=== PATIENT | female | born 1995 | race Caucasian/White ===

== ENCOUNTER 2021-02-04 10:26 | Emergency (ER) | payer OTHER, MEDICAID ==
[~2021-02-04] VITALS: Ht 167.6 cm; Wt 117.5 kg
[2021-02-04] MEDS ORDERED: BUTALB-APAP-CA1 EACH PO (10:40)
[2021-02-04] MEDS ORDERED: PROZAC10 M1 PO (10:40)
[2021-02-04] MEDS ORDERED: HYDROXYZINE HCL25 M2 PO (10:40)
[2021-02-04 11:02] LABS: ABSOLUTE BASOPHILS 0.1 thou/uL (0.0-0.2); ABSOLUTE EOSINOPHILS 0.1 thou/uL (0.0-0.7); ABSOLUTE LYMPHOCYTES 2.9 thou/uL (0.8-5.3); ABSOLUTE MONOCYTES 0.3 thou/uL (0.0-1.2); ABSOLUTE NEUTROPHILS 4.8 thou/uL (1.6-8.1); BASOPHILS 0.8 %; EOSINOPHILS 1.6 %; HEMOGLOBIN 14.1 gm/dL (12.0-15.0); LYMPHOCYTES 35.7 %; MCH 27.6 pg (26.0-34.0); MCHC 34.5 g/dL (28.0-37.0); MCV 79.9 fL (80.0-100.0); MONOCYTES 3.3 %; MPV 8.4 fl. (7.2-11.1); NUCLEATED RBCS 0 /100WBC; PLATELET COUNT* 234 thou/uL (150-400); POLYS 58.6 %; RBC 5.13 mil/uL (4.20-5.00); WBC 8.2 thou/uL (4.0-11.0)
[2021-02-04 11:09] LABS: CALCIUM 8.4 mg/dL (8.5-10.1); CREATININE 0.7 mg/dL (0.6-1.3); POTASSIUM 3.9 mmol/L (3.5-5.1)
[2021-02-04 11:23] LABS: ALBUMIN 3.6 g/dL (3.4-5.0); CK-MB MASS 0.9 ng/mL (<0.5-3.6); MAGNESIUM 1.7 mg/dL (1.8-2.4); TOTAL BILIRUBIN 0.2 mg/dL (<0.1-1.0); TOTAL PROTEIN 7.4 g/dL (6.4-8.2)
[2021-02-04 11:50] VITALS: BP 121/76
--- NOTE | 2021-02-05 12:47 | EKG ---
[place] [address] ELECTROCARDIOGRAM REPORT Name: PETER PUGH Room: [facility]#: [id number] Admission: 02/04/21 Attend Phys: Discharge: 02/04/21 Date of : [birth year] Date of Service: 02/04/21 1043 Report #: [id number] THIS REPORT FOR: //name// [facility] ED Test Date: 2021-02-04 Test Time: 10:43:05 Pat Name: PETER PUGH Department: Room: Gender: [employer]: : 1995 Requested By: Vance Davies Order Number: [id number] MD: Dc Ahmadi Measurements Intervals [place] Rate: 61 P: 27 [place]: 133 QRS: 26 QRSD: 86 T: -1 QT: 406 QTc: 409 Interpretive Statements Sinus rhythm Borderline T abnormalities, inferior leads No previous ECG available for comparison Electronically Signed On 02-05-2021 12:47:02 CDT by Dc Ahmadi [email or web address] <ELECTRONICALLY SIGNED> By: Dc Ahmadi MD, [facility] 02/05/21 1247 1043 1043 Dc Ahmadi MD, [facility] /EPI
== END 2021-02-04 11:50 | disposition home or self-care (01) ==
LOC: M.ERS 10:26
PROVIDERS: Family Medicine
DX: R07.89 Other chest pain (principal); R42 Dizziness and giddiness; Z88.1 Allergy status to other antibiotic agents; Z88.0 Allergy status to penicillin